=== PATIENT | male | born 1990 | race African-American/Black ===

== ENCOUNTER 2018-02-02 02:31 | Emergency (ER) | payer SELFPAY ==
[2018-02-02] MEDS ORDERED: Mag-Al 1200 mg/1200 mg/30 ML UDCUP ONE (02:39)
[2018-02-02] MEDS ORDERED: Ondansetron ODT 4 MG TAB ONE (02:39)
[2018-02-02] MEDS ORDERED: Lidocaine Viscous Sol 2% 15 ml UD Cup ONE (02:39)
[2018-02-02 03:03] LABS: #Lymphocytes 0.9 thou/uL (1.20-3.40); #Monocytes 0.7 thou/uL (0.11-0.59); #Neutrophils 4.9 thou/uL (1.40-6.50); %Basophils 0.3 % (0.0-1.0); %Eosinophils 0.5 % (0.0-10.0); %Lymphocytes 13.1 % (21.0-51.0); %Monocytes 10.4 % (0.0-10.0); %Neutrophils 75.7 % (42.0-75.0); Hemoglobin 15.6 g/dL (14.0-18.0); Mean Corpuscular HGB CONC 34.1 g/dL (32.0-36.0); Mean Corpuscular Hemoglobin 28.5 pg (27.0-31.0); Mean Corpuscular Volume 83.7 fL (78.0-98.0); Platelet Count 203 thou/uL (130-400); Red Blood Cell (RBC) Count 5.47 mill/uL (4.70-6.10); White Blood Cell (WBC) Count 6.5 thou/uL (4.8-10.8)
[2018-02-02 03:25] LABS: ALT (SGPT) 40 U/L (8-55); AST (SGOT) 24 U/L (5-34); Albumin 4.5 g/dL (3.5-5.0); Alkaline Phosphatase 74 U/L (40-150); Anion Gap 13 mmol/L (10-20); BUN (Urea Nitrogen) 15 mg/dL (8.9-20.6); Bilirubin, Total 0.9 mg/dL (0.2-1.2); Calc. Creatinine Clearance 0 mL/min (70-130); Calcium 9.8 mg/dL (7.8-10.44); Carbon Dioxide 28 mmol/L (22-29); Chloride 102 mmol/L (98-107); Estimated GFR-MDRD Greater than 90; Globulin 3.5 g/dL (2.4-3.5); Glucose 88 mg/dL (70-105); Lipase 10 U/L (8-78); Potassium 4.1 mmol/L (3.5-5.1); Sodium 139 mmol/L (136-145)
== END 2018-02-02 03:59 | disposition home or self-care (01) ==
LOC: ERS 02:31
DX: K52.9 Noninfective gastroenteritis and colitis, unspecified (principal); F17.210 Nicotine dependence, cigarettes, uncomplicated; Z71.6 Tobacco abuse counseling
CPT/HCPCS: 36415; 80053; 83690; 85025; 99406; Q0162

== ENCOUNTER 2021-07-12 19:32 | Emergency (ER) | payer SELFPAY ==
[2021-07-12] MEDS ORDERED: Ibuprofen 800 MG TAB ONE (20:19)
== END 2021-07-12 20:59 | disposition home or self-care (01) ==
LOC: ERS 19:32
DX: M94.0 Chondrocostal junction syndrome [Tietze] (principal); F17.210 Nicotine dependence, cigarettes, uncomplicated
CPT/HCPCS: 71046; 93005

== ENCOUNTER 2021-09-28 23:36 | Emergency (ER) | payer SELFPAY | END 2021-09-29 02:12 | disposition home or self-care (01) | LOC: ERS 23:36 | DX: J45.909 Unspecified asthma, uncomplicated (principal) | CPT/HCPCS: 71045; 93005 ==

== ENCOUNTER 2023-01-29 03:22 | Emergency (ER) | payer SELFPAY | END 2023-01-29 04:02 | disposition home or self-care (01) | LOC: ERS 03:22 | DX: H20.00 Unspecified acute and subacute iridocyclitis (principal); F17.210 Nicotine dependence, cigarettes, uncomplicated | CPT/HCPCS: 99282 ==